=== PATIENT | male | born 1945 | race Two or more races ===

== ENCOUNTER → 2024-10-02 | Outpatient (CLI) | payer MEDICARE, BC, SELFPAY ==
[2024-10-02 10:49] LABS: Glucose Estimated Average 200 mg/dL (80-131); Hemoglobin A1C 8.6 % Hgb (4.8-6.0)
[2024-10-02 11:24] LABS: Albumin, Serum 3.8 gm/dL (3.4-4.8); Anion Gap 10 (7-16); BUN/Creatinine Ratio 17 Ratio (12-20); Blood Urea Nitrogen 33 mg/dL (9-23); Calcium 9.1 mg/dL (8.3-10.6); Calcium (Corrected) 9.3 mg/dL (8.5-10.1); Carbon Dioxide 27.6 mMol/L (20.0-31.0); Chloride 104 mMol/L (98-107); Glucose 180 mg/dL (74-106); Osmolality,Calculated 295 (275-295); Phosphorous 3.8 mg/dL (2.4-5.1); Potassium 5.2 mMol/L (3.4-5.1); Sodium 142 mMol/L (136-145); eGFR 34 See Note
== END | disposition home or self-care (01) ==
LOC: COPL 10:03
PROVIDERS: PCP Internal Medicine; Referring Provider Internal Medicine; Visit Provider Internal Medicine
DX: E11.9 Type 2 diabetes mellitus without complications (principal); I11.0 Hypertensive heart disease with heart failure
CPT/HCPCS: 36415; 80069; 83036

== ENCOUNTER → 2024-11-19 | Outpatient (CLI) | payer MEDICARE, BC, SELFPAY ==
--- NOTE | 2024-11-19 | XR_ITS ---
Examination: CT abdomen without intravenous contrast. Coronal 2-D reconstructions. Sagittal 2-D reconstructions. Date and time of exam:November 20, 2019 0503 hrs. Indications: Diagnosis abnormal liver disease CTDI: vol (mGy): 10.6 DLP: (mGycm): 373 Technique: Axial images of the abdomen have been obtained, 3 mm slice thickness, without intravenous contrast 2-D sagittal coronal reconstructions Low dose protocols were performed. One or more of the following dose reduction techniques were used; automated exposure control, adjustment of the mA and/or KV according to patient size, use of iterative reconstruction technique. Findings: Liver mildly irregular in contour 14 mm liver cyst No gallstones Spleen not enlarged No pancreatic or adrenal mass No renal or ureteral calculi, no hydronephrosis Aorta normal size No pericecal inflammatory change No bowel obstruction Mild osteopenia Impression: Primary hepatocellular disease
== END | disposition home or self-care (01) ==
LOC: CDIM 11:39 → CCTX 11:39
PROVIDERS: PCP Family Medicine; Referring Provider Family Medicine; Visit Provider Family Medicine
DX: K76.9 Liver disease, unspecified (principal)
CPT/HCPCS: 74150

== ENCOUNTER → 2024-12-25 | Outpatient (CLI) | payer MEDICARE, BC, SELFPAY ==
--- NOTE | 2024-12-25 10:00 | XR_ITS ---
Examination: MRI brain without intravenous contrast. Date and time of exam: December 25, 2024 1045 hours INDICATIONS: Increasing memory loss and hearing loss the nearest Technique: Multiple axial and sagittal images of the brain obtained. Siemens high-resolution 1.5 Virginie short bore scanners utilized. Sagittal sections, T1-weighted, TR 500, TE 14, are performed. Axial sections proton-density and T2-weighted have been obtained. Inversion recovery axial images, TR 9, 260, TE 111, TI 2500. Diffusion weighted images, axial sections, TR 4800, TE 128, B value 1000 Axial sections, ADC map, TR 4800, TE 128 Findings: Enlargement of the sella turcica is not present. The optic chiasm and infundibular are not remarkable. Prepontine and interpeduncular cisterns are not enlarged. There is no localized enlargement of the medulla or jose alberto. Fourth ventricle and cerebellar tonsils appear normal in position. No subacute area of hemorrhage density is seen. Mass in the cerebellopontine angle region is not evident. Globes symmetrical. Orbital musculature including medial lateral rectus muscles do not exhibit abnormality. Diffusion-weighted images demonstrate no focus of restricted diffusion. Increased white matter signal mild Mass effect upon the ventricular system is not identified. Impression: Negative for acute hemorrhage mass effect or midline shift No acute infarct Mild chronic microvascular white matter change Mild right mastoiditis
[2024-12-25 10:49] VITALS: BP 147/68; PULSE 59; RESP 16; O2SAT 97
[2024-12-25 10:54] VITALS: BP 148/63; PULSE 57; RESP 16; O2SAT 98
[2024-12-25 10:59] VITALS: BP 136/60; PULSE 57; RESP 16; O2SAT 97
[2024-12-25 11:04] VITALS: BP 135/59; RESP 18; O2SAT 96
[2024-12-25 11:07] VITALS: PULSE 54; RESP 16; O2SAT 95
== END | disposition home or self-care (01) ==
PROVIDERS: PCP Family Medicine; Referring Provider Family Medicine; Visit Provider Family Medicine
DX: R90.82 White matter disease, unspecified (principal); H70.891 Other mastoiditis and related conditions, right ear
CPT/HCPCS: 70551